=== PATIENT | male | born 1990 | race Caucasian/White ===

== ENCOUNTER 2017-06-27 10:05 | Emergency (ER) | payer MEDICAID ==
[~2017-06-27] VITALS: Ht 180.3 cm; Wt 81.0 kg
[2017-06-27 10:14] VITALS: BP 144/75
== END 2017-06-27 11:45 | disposition home or self-care (01) ==
LOC: ER 10:10
DX: S90.822A Blister (nonthermal), left foot, initial encounter (principal); S90.821A Blister (nonthermal), right foot, initial encounter; Z59.0 Homelessness; X58.XXXA Exposure to other specified factors, initial encounter; Y93.89 Activity, other specified; Y92.89 Other specified places as the place of occurrence of the external cause; Y99.8 Other external cause status
CPT/HCPCS: 99283

== ENCOUNTER 2017-09-04 06:42 | Emergency (ER) | payer MEDICAID ==
[~2017-09-04] VITALS: Ht 180.3 cm; Wt 81.8 kg
[2017-09-04] MEDS ORDERED: dexamethasone sod phosphate 10mg/ml inj PO STA (08:14)
[2017-09-04] MEDS ORDERED: ondansetron 4mg rapidly disintigrating tab PO ONE (08:15)
[2017-09-04] MEDS ORDERED: PENI500T2 PO (09:17)
[2017-09-04 09:34] VITALS: BP 127/64
== END 2017-09-04 09:41 | disposition home or self-care (01) ==
LOC: ER 06:43
DX: J02.0 Streptococcal pharyngitis (principal); Z59.0 Homelessness
CPT/HCPCS: 71045; 87880; 99285; J1100